=== PATIENT | female | born 1975 | race Two or more races ===

== ENCOUNTER → 2021-11-22 | Outpatient (POV) | payer OTHER ==
[~2021-11-22] VITALS: Ht 160 cm; Wt 48.6 kg
[2021-11-22 13:35] VITALS: BP 118/68
== END ==
LOC: M IRPOV 12:59
PROVIDERS: ATTEND Radiology Diagnostic Radiology
DX: K72.90 Hepatic failure, unspecified without coma (principal); R18.8 Other ascites; I85.00 Esophageal varices without bleeding; F17.210 Nicotine dependence, cigarettes, uncomplicated; Z72.89 Other problems related to lifestyle